=== PATIENT | female | born 1990 ===

== ENCOUNTER → 2024-01-03 07:55 | Outpatient (CLI) | payer OTHER, SELFPAY ==
--- NOTE | 2024-01-03 | DI.MRI.S_ITS ---
PROCEDURE: MR KNEE RT WO CON INDICATIONS: Pain in right knee TECHNIQUE: Noncontrast sagittal PD fast spin echo and T2 fast spin echo with fat saturation, sagittal 3-D FLASH with fat saturation; coronal T1 spin echo and PD fast spin echo with fat saturation, and axial PD fast spin echo with fat saturation through the knee. COMPARISON: None. FINDINGS: Image quality: Excellent. Menisci: The medial and lateral menisci demonstrate normal morphology and internal signal. The meniscal root ligaments appear intact. Cruciate ligaments: The anterior and posterior cruciate ligaments appear intact. Medial structures: The medial collateral ligament appears mildly thickened near its femoral insertion. Visualized portions of the pes anserinus tendons appear normal. No abnormal bursal fluid. Lateral structures: The lateral collateral ligament, long and short heads of the biceps femoris tendon appear intact. The popliteus tendon appears normal. Iliotibial band appears normal. Anterior structures: Distal quadriceps tendinosis at its superior patellar insertion is seen. Patellar tendon is intact.. Patellar alignment is normal. No femoral trochlear dysplasia or ventral trochlear prominence. No edema in the infrapatellar fat pad. Bones and cartilage: There is moderate grade chondromalacia patella particularly involving lateral facet of patella cartilage with underlying osteochondral injuries measures up to 5 millimeter in size and surrounding edema. No fracture or dislocation. The cartilage of the medial and lateral femorotibial compartments appears normal in thickness. Joint space: There is small knee joint fluid. No Adhikari's cyst. Normal appearing synovial plicae are incidentally noted. IMPRESSION: 1. No evidence of focal meniscal tear. 2. The cruciate ligaments are intact. 3. Mild proximal MCL sprain. 4. Distal quadriceps tendinosis. 5. 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 No fracture or dislocation. Small joint effusion, no loose bodies. Dictated by: Barney Camejo M.D. on 01/03/2024 at 14:17 Approved by: Barney Camejo M.D. on 01/03/2024 at 14:20
== END ==
LOC: MRI 07:57
PROVIDERS: PCP Nurse Practitioner Family; Referring Provider Nurse Practitioner Family; Visit Provider Nurse Practitioner Family
DX: S83.411A Sprain of medial collateral ligament of right knee, initial encounter (principal); M25.561 Pain in right knee; M22.41 Chondromalacia patellae, right knee; M25.461 Effusion, right knee
CPT/HCPCS: 73721